=== PATIENT | male | born 1960 | race Caucasian/White ===

== ENCOUNTER 2022-11-29 16:27 | Inpatient (IN) | payer BC, OTHER ==
[2022-11-29 16:33] LABS: Glucose,Whole Blood 338 mg/dL (70-110)
[2022-11-29] MEDS ORDERED: SODIUM CHLORIDE 0.9% 1,000 ML IV STA ×2 (16:42→17:37)
--- NOTE | 2022-11-29 16:42 | ED ---
Weakness HPI - General Chief complaint: Dizziness Stated complaint: dizziness Source: patient, EMS, RN notes reviewed, old records reviewed Mode of arrival: EMS Limitations: no limitations - History of Present Illness Initial comments: This is a 62-year-old male to the emergency department for evaluation of weakness multiple near syncopal event and on arrival to the ER seizure-like activity. Patient per himself has history of high blood pressure but no other medical history takes no medications no new medications no change in medications denies drugs or alcohol complains of severe dizziness lightheadedness and weakness. MD Complaint: generalized weakness, lack of energy, difficulty walking -: hour(s) Location: generalized Severity: severe Severity scale (1-10): 8 Quality: aching Consistency: constant Improves with: none Worsens with: none Context: other (Patient states he was at work when he began to feel significan tly unwell) Associated Symptoms: denies other symptoms, shortness of breath, syncope - Related Data Home Medications Medication Instructions Recorded Confirmed Atorvastatin [Lipitor] 10 mg PO DAILY 11/29/22 11/29/22 Previous Rx's Medication Instructions Recorded Amlodipine Besylate/Valsartan 1 tab PO BID #30 tab 12/01/22 [Amlodipine-Valsartan 5-160 mg] Aspirin 81 mg PO DAILY #30 tab 12/01/22 metFORMIN HCL 500 mg PO BID 30 Days #30 ml 12/01/22 sitaGLIPtin PHOSPHATE [Januvia] 25 mg PO DAILY #30 tab 12/01/22 Allergies Allergy/AdvReac Type Severity Reaction Status Date / Time No Known Allergies Allergy Verified 11/29/22 19:03 Review of Systems ROS Statement: Those systems with pertinent positive or pertinent negative responses have been documented in the HPI. ROS Other: All systems not noted in ROS Statement are negative. Past Medical History Past Medical History: Hypertension Past Surgical History: No Surgical Hx Reported Past Psychological History: No Psychological Hx Reported Smoking Status: Former smoker Past Alcohol Use History: None Reported Past Drug Use History: None Reported - Past Family History Father Family Medical History: No Reported History Mother Family Medical History: No Reported History General Exam Limitations: no limitations General appearance: alert, anxious, in distress Head exam: Present: atraumatic, normocephalic, normal inspection Eye exam: Present: normal appearance, PERRL, EOMI. Absent: scleral icterus, conjunctival injection, periorbital swelling ENT exam: Present: normal exam, mucous membranes moist Neck exam: Present: normal inspection. Absent: tenderness, meningismus, lymphadenopathy Respiratory exam: Present: normal lung sounds bilaterally, decreased breath sounds, prolonged expiratory. Absent: respiratory distress, wheezes, rales, rhonchi, stridor Cardiovascular Exam: Present: tachycardia, normal heart sounds. Absent: systolic murmur, diastolic murmur, rubs, gallop, clicks GI/Abdominal exam: Present: soft, normal bowel sounds. Absent: distended, tenderness, guarding, rebound, rigid Extremities exam: Present: normal inspection, full ROM, normal capillary refill. Absent: tenderness, pedal edema, joint swelling, calf tenderness Back exam: Present: normal inspection Neurological exam: Present: alert, oriented X3, CN II-XII intact Psychiatric exam: Present: normal affect, normal mood Skin exam: Present: warm, dry, intact, normal color. Absent: rash Course Vital Signs 11/29/22 11/29/22 11/29/22 16:29 17:01 18:05 Temperature 97.6 F Pulse Rate 105 H 101 H 97 Respiratory 19 17 18 Rate Blood Pressure 185/89 139/84 156/87 O2 Sat by Pulse 93 L 93 L 96 Oximetry 11/29/22 11/29/22 11/29/22 19:07 19:09 20:18 Temperature 98.6 F Pulse Rate 111 H 101 H Respiratory 17 20 Rate Blood Pressure 161/90 153/86 O2 Sat by Pulse 90 L 96 97 Oximetry 11/29/22 22:16 Temperature 98.6 F Pulse Rate 110 H Respiratory 19 Rate Blood Pressure 133/87 O2 Sat by Pulse 96 Oximetry - Reevaluation(s) Reevaluation #1: 11/29/22 19:41 Medical record is reviewed 11/29/22 21:37 Patient had seizure activity on bedside placement with no history of seizures. Patient became profoundly hypoxic Reevaluation #2: 11/29/22 19:41 Seizure-like activity on arrival 11/29/22 19:41 Low oxygen here in the ER Reevaluation #3: 11/29/22 19:41 Patient informed results and questions answered Patient is remaining tachycardic hypertensive and hypoxic here in the emergency department Patient is not safe for discharge home Reevaluation #4: 11/29/22 19:41 Was pt. sent in by a medical professional or institution (KATHIE Wen, W[employer] B[employer] MACHINE HELPER, urgent care, hospital, or [facility]...) When possible be specific @ -no Did you speak to anyone other than the patient for history (EMS, parent, family, police, friend...)? What history was obtained from this source @ - states when she arrived at patient's work he was sweaty diaphoretic. No medical history she may pass out Did you review nursing and triage notes (agree or disagree)? Why? @ -agree Are old charts reviewed (outside hosp., previous admission, EMS record, old EKG, old radiological studies, urgent care reports/EKG's, [facility] records)? Report findings @ -yes Differential Diagnosis (chest pain, altered mental status, abdominal pain women, abdominal pain men, vaginal bleeding, weakness, fever, dyspnea, syncope, headache, dizziness, GI bleed, back pain, seizure, CVA, palpatations, mental health, musculoskeletal)? @ -prior EKG interpreted by me (3pts min.). @ -yes X-rays interpreted by me (1pt min.). @ -no CT interpreted by me (1pt min.). @ -yes U/S interpreted by me (1pt. min.). @ -no What testing was considered but not performed or refused? (CT, X-rays, U/S, labs)? Why? @ -none What meds were considered but not given or refused? Why? @ -none Did you discuss the management of the patient with other professionals (professionals i.e. KATHIE Wen, W[employer] B[employer] MACHINE HELPER, lab, RT, psych nurse, oncology social worker, geophysical laboratory director, teacher, chief medical officer, case worker)? Give summary @ -no Was smoking cessation discussed for >3mins.? @ -no Was critical care preformed (if so, how long)? @ -no Were there social determinants of health that impacted care today? How? (Homelessness, low income, unemployed, alcoholism, drug addiction, transportation, low edu. Level, literacy, decrease access to med. care, halfway, rehab)? @ -none Was there de-escalation of care discussed even if they declined (Discuss DNR or withdrawal of care, Hospice)? DNR status @ -no What co-morbidities impacted this encounter? (DM, HTN, Smoking, COPD, CAD, Cancer, CVA, ARF, Chemo, Hep., AIDS, mental health diagnosis, sleep apnea, morbid obesity)? @ -none Was patient admitted / discharged? Hospital course, mention meds given and route, prescriptions, significant lab abnormalities, going to OR and other pertinent info. @ - 62 male to the emergency room today for evaluation of syncopal event near syncopal event prior to arrival at work. Patient admits increased stress and increased issues at work and not a lot of self-care. Patient does have seizure here seizure activity on arrival in emergency department here. Patient to become significantly following hypoxic during this event with oxygen in the 60s. Patient does have newly diagnosed here in the emergency department hypertension as well as diabetes which will need further evaluation management Admitted Undiagnosed new problem with uncertain prognosis? @ -no Drug Therapy requiring intensive monitoring for toxicity (Heparin, Nitro, Insulin, Cardizem)? @ -no Were any procedures done? @ -no Diagnosis/symptom? @ -Hypoxia, hypertension, diabetes, seizure, new Acute, or Chronic, or Acute on Chronic? @ -Acute Uncomplicated (without systemic symptoms) or Complicated (systemic symptoms)? @ -Complicated Side effects of treatment? @ -no Exacerbation, Progression, or Severe Exacerbation? @ -exacerbation Poses a threat to life or bodily function? How? (Chest pain, [place], [place], pneumonia, PE, COPD, DKA, ARF, appy, cholecystitis, CVA, Diverticulitis, Homicidal, Suicidal, threat to staff... and all critical care pts) @ -yes severe hypoxia and syncopal event) mortality Reevaluation #5: 11/29/22 19:41 Differential Seizure: Recurrent seizure disorder, febrile seizure, alcohol withdrawal, stimulants, meningitis, encephalitis, intercranial hemorrhage, intracranial tumor, stroke, eclampsia, thyrotoxicosis, hypocalcemia, hyponatremia, hypernatremia, hypom agnesemia, psychogenic, this is not meant to be an all-inclusive list. - Consultations Consultation #1: spoke ya BOYKIN who agrees to admit the patient EKG Findings - EKG Comments: EKG Findings:: EKG sinus tachycardia 103 HI 183 QRS 126 QTc 433 - EKG Results: EKG: interpreted by [facility] Medical Decision Making - Medical Decision Making 62 male to the emergency room today for evaluation of syncopal event near syncopal event prior to arrival at work. Patient admits increased stress and increased issues at work and not a lot of self-care. Patient does have seizure here seizure activity on arrival in emergency department here. Patient to become significantly following hypoxic during this event with oxygen in the 60s. Patient does have newly diagnosed here in the emergency department hypertension as well as diabetes which will need further evaluation management - Lab Data Result diagrams: 11/30/22 03:41 11/30/22 03:41 Lab Results 11/29/22 11/29/22 11/29/22 Range/Units 16:32 16:46 16:46 WBC 10.0 (3.8-10.6) k/uL RBC 4.68 (4.30-5.90) m/uL Hgb 14.2 (13.0-17.5) gm/dL Hct 41.1 (39.0-53.0) % MCV 87.7 (80.0-100.0) fL MCH 30.3 (25.0-35.0) pg MCHC 34.5 (31.0-37.0) g/dL RDW 12.2 (11.5-15.5) % Plt Count 231 (150-450) k/uL MPV 8.0 Neutrophils % 78 % Lymphocytes % 15 % Monocytes % 5 % Eosinophils % 1 % Basophils % 1 % Neutrophils # 7.8 H (1.3-7.7) k/uL Lymphocytes # 1.5 (1.0-4.8) k/uL Monocytes # 0.5 (0-1.0) k/uL Eosinophils # 0.1 (0-0.7) k/uL Basophils # 0.1 (0-0.2) k/uL PT 9.9 (9.0-12.0) sec INR 0.9 (<1.2) APTT 21.0 L (22.0-30.0) sec Sodium (137-145) mmol/L Potassium (3.5-5.1) mmol/L Chloride (98-107) mmol/L Carbon Dioxide (22-30) mmol/L Anion Gap mmol/L BUN (9-20) mg/dL Creatinine (0.66-1.25) mg/dL Est GFR (CKD-EPI)AfAm (>60 ml/min/1.73 sqM) Est GFR (CKD-EPI)NonAf (>60 ml/min/1.73 sqM) Glucose (74-99) mg/dL POC Glucose (mg/dL) 338 H (70-110) mg/dL POC Glu Basketball Scout ID Debbie Casiano Lactic Ac Sepsis Rflx Plasma Lactic Acid Jhon (0.7-2.0) mmol/L Calcium (8.4-10.2) mg/dL Phosphorus (2.5-4.5) mg/dL Magnesium (1.6-2.3) mg/dL Total Bilirubin (0.2-1.3) mg/dL AST (17-59) U/L ALT (4-49) U/L Alkaline Phosphatase (38-126) U/L Troponin I (0.000-0.034) ng/mL Total Protein (6.3-8.2) g/dL Albumin (3.5-5.0) g/dL 11/29/22 11/29/22 11/29/22 Range/Units 16:46 16:46 16:46 WBC (3.8-10.6) k/uL RBC (4.30-5.90) m/uL Hgb (13.0-17.5) gm/dL Hct (39.0-53.0) % MCV (80.0-100.0) fL MCH (25.0-35.0) pg MCHC (31.0-37.0) g/dL RDW (11.5-15.5) % Plt Count (150-450) k/uL MPV Neutrophils % % Lymphocytes % % Monocytes % % Eosinophils % % Basophils % % Neutrophils # (1.3-7.7) k/uL Lymphocytes # (1.0-4.8) k/uL Monocytes # (0-1.0) k/uL Eosinophils # (0-0.7) k/uL Basophils # (0-0.2) k/uL PT (9.0-12.0) sec INR (<1.2) APTT (22.0-30.0) sec Sodium 137 (137-145) mmol/L Potassium 3.3 L (3.5-5.1) mmol/L Chloride 99 (98-107) mmol/L Carbon Dioxide 26 (22-30) mmol/L Anion Gap 12 mmol/L BUN 14 (9-20) mg/dL Creatinine 0.77 (0.66-1.25) mg/dL Est GFR (CKD-EPI)AfAm >90 (>60 ml/min/1.73 sqM) Est GFR (CKD-EPI)NonAf >90 (>60 ml/min/1.73 sqM) Glucose 313 H (74-99) mg/dL POC Glucose (mg/dL) (70-110) mg/dL POC Glu Basketball Scout ID Lactic Ac Sepsis Rflx Plasma Lactic Acid Jhon 4.7 H* (0.7-2.0) mmol/L Calcium 8.8 (8.4-10.2) mg/dL Phosphorus 2.7 (2.5-4.5) mg/dL Magnesium 1.9 (1.6-2.3) mg/dL Total Bilirubin 0.6 (0.2-1.3) mg/dL AST 41 (17-59) U/L ALT 53 H (4-49) U/L Alkaline Phosphatase 130 H (38-126) U/L Troponin I <0.012 (0.000-0.034) ng/mL Total Protein 7.0 (6.3-8.2) g/dL Albumin 4.2 (3.5-5.0) g/dL 11/29/22 11/29/22 11/29/22 Range/Units 17:19 19:48 20:12 WBC (3.8-10.6) k/uL RBC (4.30-5.90) m/uL Hgb (13.0-17.5) gm/dL Hct (39.0-53.0) % MCV (80.0-100.0) fL MCH (25.0-35.0) pg MCHC (31.0-37.0) g/dL RDW (11.5-15.5) % Plt Count (150-450) k/uL MPV Neutrophils % % Lymphocytes % % Monocytes % % Eosinophils % % Basophils % % Neutrophils # (1.3-7.7) k/uL Lymphocytes # (1.0-4.8) k/uL Monocytes # (0-1.0) k/uL Eosinophils # (0-0.7) k/uL Basophils # (0-0.2) k/uL PT (9.0-12.0) sec INR (<1.2) APTT (22.0-30.0) sec Sodium (137-145) mmol/L Potassium (3.5-5.1) mmol/L Chloride (98-107) mmol/L Carbon Dioxide (22-30) mmol/L Anion Gap mmol/L BUN (9-20) mg/dL Creatinine (0.66-1.25) mg/dL Est GFR (CKD-EPI)AfAm (>60 ml/min/1.73 sqM) Est GFR (CKD-EPI)NonAf (>60 ml/min/1.73 sqM) Glucose (74-99) mg/dL POC Glucose (mg/dL) (70-110) mg/dL POC Glu Basketball Scout ID Lactic Ac Sepsis Rflx Y Y Plasma Lactic Acid Jhon 2.8 H* (0.7-2.0) mmol/L Calcium (8.4-10.2) mg/dL Phosphorus (2.5-4.5) mg/dL Magnesium (1.6-2.3) mg/dL Total Bilirubin (0.2-1.3) mg/dL AST (17-59) U/L ALT (4-49) U/L Alkaline Phosphatase (38-126) U/L Troponin I (0.000-0.034) ng/mL Total Protein (6.3-8.2) g/dL Albumin (3.5-5.0) g/dL 11/29/22 Range/Units 21:26 WBC (3.8-10.6) k/uL RBC (4.30-5.90) m/uL Hgb (13.0-17.5) gm/dL Hct (39.0-53.0) % MCV (80.0-100.0) fL MCH (25.0-35.0) pg MCHC (31.0-37.0) g/dL RDW (11.5-15.5) % Plt Count (150-450) k/uL MPV Neutrophils % % Lymphocytes % % Monocytes % % Eosinophils % % Basophils % % Neutrophils # (1.3-7.7) k/uL Lymphocytes # (1.0-4.8) k/uL Monocytes # (0-1.0) k/uL Eosinophils # (0-0.7) k/uL Basophils # (0-0.2) k/uL PT (9.0-12.0) sec INR (<1.2) APTT (22.0-30.0) sec Sodium (137-145) mmol/L Potassium (3.5-5.1) mmol/L Chloride (98-107) mmol/L Carbon Dioxide (22-30) mmol/L Anion Gap mmol/L BUN (9-20) mg/dL Creatinine (0.66-1.25) mg/dL Est GFR (CKD-EPI)AfAm (>60 ml/min/1.73 sqM) Est GFR (CKD-EPI)NonAf (>60 ml/min/1.73 sqM) Glucose (74-99) mg/dL POC Glucose (mg/dL) (70-110) mg/dL POC Glu Basketball Scout ID Lactic Ac Sepsis Rflx Plasma Lactic Acid Jhon 2.4 H* (0.7-2.0) mmol/L Calcium (8.4-10.2) mg/dL Phosphorus (2.5-4.5) mg/dL Magnesium (1.6-2.3) mg/dL Total Bilirubin (0.2-1.3) mg/dL AST (17-59) U/L ALT (4-49) U/L Alkaline Phosphatase (38-126) U/L Troponin I (0.000-0.034) ng/mL Total Protein (6.3-8.2) g/dL Albumin (3.5-5.0) g/dL - EKG Data -: EKG Interpreted by Me - Radiology Data Radiology results: report reviewed (CT brain negative for acute disease CT angiogram chest no PE), image reviewed Critical Care Time Critical Care Time: Yes Total Critical Care Time: 31 Disposition Clinical Impression: Seizure, New onset seizure, Hypoxia, Hypertension, Diabetes mellitus, new onset, Tachycardia Disposition: ADMITTED IP TO THIS HOSP Condition: Fair Is patient prescribed a controlled substance at d/c from ED?: No Time of Disposition: 21:30
[2022-11-29 17:05] LABS: Basophils # (A) 0.1 k/uL (0-0.2); Basophils % (A) 1 %; Eosinophils # (A) 0.1 k/uL (0-0.7); Eosinophils % (A) 1 %; HCT 41.1 % (39.0-53.0); HGB 14.2 gm/dL (13.0-17.5); Lymphocytes # (A) 1.5 k/uL (1.0-4.8); Lymphocytes % (A) 15 %; MCH 30.3 pg (25.0-35.0); MCHC 34.5 g/dL (31.0-37.0); MCV 87.7 fL (80.0-100.0); Monocytes # (A) 0.5 k/uL (0-1.0); Monocytes % (A) 5 %; Neutrophils # (A) 7.8 k/uL (1.3-7.7); Neutrophils % (A) 78 %; Platelet Count 231 k/uL (150-450); RBC 4.68 m/uL (4.30-5.90); RDW 12.2 % (11.5-15.5)
[2022-11-29 17:21] LABS: ALT 53 U/L (4-49); AST 41 U/L (17-59); African American GFR (CKD) >90 (>60 ml/min/1.73 sqM); Albumin 4.2 g/dL (3.5-5.0); Alkaline Phosphatase 130 U/L (38-126); Anion Gap 12 mmol/L; Blood Urea Nitrogen 14 mg/dL (9-20); Calcium 8.8 mg/dL (8.4-10.2); Carbon Dioxide 26 mmol/L (22-30); Chloride 99 mmol/L (98-107); Glucose 313 mg/dL (74-99); Magnesium 1.9 mg/dL (1.6-2.3); Non-African American GFR(CKD) >90 (>60 ml/min/1.73 sqM); Phosphorus 2.7 mg/dL (2.5-4.5); Potassium 3.3 mmol/L (3.5-5.1); Sodium 137 mmol/L (137-145); Total Bilirubin 0.6 mg/dL (0.2-1.3)
[2022-11-29 17:23] LABS: INR 0.9 (<1.2); Prothrombin Time 9.9 sec (9.0-12.0)
[2022-11-29] MEDS ORDERED: SODIUM CHLORIDE 0.9% 1,000 ML IV ONE (17:37)
--- NOTE | 2022-11-29 17:50 | CT ---
EXAMINATION TYPE: CT brain wo con DATE OF EXAM: 11/29/2022 HISTORY: dizziness, possible seizure CT DLP: 1182.4. scanned by MILO [email or web address]. Automated Exposure Control for Dose Reduction was Utilized. TECHNIQUE: CT scan of the head is performed without contrast. COMPARISON: None. FINDINGS: There is no acute intracranial hemorrhage or midline shift identified. There is no mass or mass effect or definite new attenuation defect. The globes are intact and the paranasal sinuses, mast oid sinus air cells, and middle ear cavities are clear. IMPRESSION: No acute CT process.
--- NOTE | 2022-11-29 21:09 | CT ---
EXAMINATION TYPE: CT angio chest DATE OF EXAM: 11/29/2022 COMPARISON: NONE HISTORY: Dizziness CT DLP: 2936.7 mGycm. Automated Exposure Control for Dose Reduction was Utilized. CONTRAST: CTA scan of the thorax is performed with IV Contrast, patient injected with 100 ml mL of Is ovue 370. MIP Images are created on CT scanner and reviewed. 3D reconstructed images are created on an independent workstation and reviewed. FINDINGS: LUNGS: The lungs are grossly clear, there is no concerning parenchymal mass or nodule identified. T here is no pleural effusion or pneumothorax seen. The tracheobronchial tree is patent. MEDIASTINUM: There is satisfactory enhancement of the pulmonary artery and its branches; there is no CT evidence for pulmonary embolism. The aorta is mildly ectatic, but there is no acute aortic process . There is borderline cardiomegaly with prominent left and right coronary calcifications are noted. T here are no greater than 1 cm hilar or mediastinal lymph nodes. No pericardial effusion is seen. OTHER: No acute skeletal process. IMPRESSION: 1. Negative for pulmonary embolism. 2. Prominent left and right coronary calcifications.
--- NOTE | 2022-11-29 21:18 | CT ---
EXAMINATION TYPE: CT abdomen pelvis w con DATE OF EXAM: 11/29/2022 COMPARISON: None HISTORY: Dizziness. CT DLP: 2936.7 mGycm, Automated Exposure Control for Dose Reduction was Utilized. CONTRAST: CT scan of the abdomen and pelvis is performed with oral and with IV Contrast, patient inje cted with 100 ml mL of Isovue 370. FINDINGS: Visualized lower chest: No acute process. LIVER/GB: No significant abnormality is appreciated. PANCREAS: No significant abnormality is seen. SPLEEN: No significant abnormality is seen. ADRENALS: No significant abnormality is seen. KIDNEYS: No acute process. BOWEL: No significant abnormality is seen. LYMPH NODES: There is a 26 x 16 mm enlarged lymph node located just medial to the gastric body, relat ed to the left gastric artery. This lymph node is homogeneous and is ovoid. There are no other candid ates for adenopathy in the abdomen or pelvis. PELVIC VISCERA: No gross abnormality seen. OSSEOUS STRUCTURES: No significant abnormality is seen. OTHER: No significant additional abnormality is seen. IMPRESSION: 1. No significant acute finding is seen to account for patient's clinical symptoms. 2. Incidental epigastric 26 x 16 mm lymph node noted.
[2022-11-29] MEDS ORDERED: MORPHINE SULFATE 4 MG/ML SYRINGE IV PRN (21:33)
[2022-11-29] MEDS ORDERED: NALOXONE 0.4 MG/ML 1 ML VIAL IV PRN (21:33)
[2022-11-29] MEDS ORDERED: ONDANSETRON 4 MG/2 ML VIAL IVP PRN (21:33)
[2022-11-29] MEDS: SODIUM CHLORIDE 0.9% 1,000 ML IV SCH (22:17)
[2022-11-30 04:16] LABS: ALT 50 U/L (4-49); AST 36 U/L (17-59); African American GFR (CKD) >90 (>60 ml/min/1.73 sqM); Albumin 3.8 g/dL (3.5-5.0); Alkaline Phosphatase 95 U/L (38-126); Anion Gap 8 mmol/L; Blood Urea Nitrogen 12 mg/dL (9-20); Calcium 8.3 mg/dL (8.4-10.2); Carbon Dioxide 27 mmol/L (22-30); Chloride 103 mmol/L (98-107); Glucose 200 mg/dL (74-99); Non-African American GFR(CKD) >90 (>60 ml/min/1.73 sqM); Phosphorus 3.3 mg/dL (2.5-4.5); Potassium 3.9 mmol/L (3.5-5.1); Sodium 138 mmol/L (137-145); Total Bilirubin 0.6 mg/dL (0.2-1.3); Total Protein 6.5 g/dL (6.3-8.2)
[2022-11-30 04:22] LABS: Basophils % (A) 0 %; Eosinophils # (A) 0.1 k/uL (0-0.7); Eosinophils % (A) 1 %; HCT 40.3 % (39.0-53.0); HGB 13.6 gm/dL (13.0-17.5); Lymphocytes # (A) 1.3 k/uL (1.0-4.8); Lymphocytes % (A) 16 %; MCH 30.1 pg (25.0-35.0); MCHC 33.7 g/dL (31.0-37.0); MCV 89.4 fL (80.0-100.0); Mean Platelet Volume 8.2; Monocytes # (A) 0.5 k/uL (0-1.0); Monocytes % (A) 6 %; Neutrophils % (A) 75 %; Platelet Count 208 k/uL (150-450); RDW 12.5 % (11.5-15.5)
[2022-11-30] MEDS: SODIUM CHLORIDE 0.9% 1,000 ML IV SCH ×3 (06:19→16:19)
[2022-11-30] MEDS: ATORVASTATIN 10 MG TAB PO SCH (07:38)
--- NOTE | 2022-11-30 10:08 | CA ---
Transthoracic Echo Report Name: Dilip Bartlett Age: 62 Gender: M : 1960 Exam Date: 11/30/2022 08:13 Exam Location: [facility] Ht (in): 69 Wt (lb): 250 Ordering Physician: Anand Montes DO Attending/Referring Phys: [id number], Jyoti Rater Associate Walter Candelario Procedure CPT: Indications: Syncope Cardiac Hx: Technical Quality: Fair Contrast 1: Total Dose (mL): Contrast 2: Total Dose (mL): MEASUREMENTS (Male / Female) Normal Values 2D ECHO LV Diastolic Diameter PLAX 4.6 cm 4.2 - 5.9 / 3.9 - 5.3 cm LV Systolic Diameter PLAX 2.9 cm IVS Diastolic Thickness 2.0 cm 0.6 - 1.0 / 0.6 - 0.9 cm LVPW Diastolic Thickness 1.4 cm 0.6 - 1.0 / 0.6 - 0.9 cm LV Relative Wall Thickness 0.7 RV Internal Dim ED PLAX 3.9 cm LVOT Diameter 2.4 cm Aortic Root Diameter 3.0 cm LA Systolic Diameter LX 3.4 cm 3.0 - 4.0 / 2.7 - 3.8 cm LV Diastolic Volume MOD BP 83.9 cm??? 67 - 155 / 56 - 104 cm??? LV Systolic Volume MOD BP 44.3 cm??? - / 19 - 49 cm??? LV Ejection Fraction MOD BP 47.2 % >= 55 % LV Cardiac Index MOD BP 1602.5 cm???/min???m??? LV Diastolic Volume MOD 4C 82.2 cm??? LV Systolic Volume MOD 4C 39.1 cm??? LV Ejection Fraction MOD 4C 52.4 % LV Cardiac Index MOD 4C 1744.5 cm???/min???m??? LV Diastolic Length 4C 7.6 cm LV Systolic Length 4C 6.6 cm LV Diastolic Volume MOD 2C 85.3 cm??? LV Systolic Volume MOD 2C 46.6 cm??? LV Ejection Fraction MOD 2C 45.4 % LV Cardiac Index MOD 2C 1567.0 cm???/min???m??? LV Diastolic Length 2C 7.6 cm LV Systolic Length 2C 7.2 cm LA Volume 60.7 cm??? 18 - 58 / 22 - 52 cm??? Ascending Aorta Diameter 3.9 cm DOPPLER AV Peak Velocity 195.9 cm/s AV Peak Gradient 15.3 mmHg LVOT Peak Velocity 125.6 cm/s LVOT Peak Gradient 6.3 mmHg AV Area Cont Eq pk 2.8 cm??? MV Peak Velocity 126.5 cm/s MV Peak Gradient 6.4 mmHg MV Mean Velocity 65.1 cm/s MV Mean Gradient 2.2 mmHg MV Velocity Time Integral 32.9 cm MR Peak Velocity 239.9 cm/s MR Peak Gradient 23.0 mmHg Mitral E Point Velocity 115.8 cm/s Mitral A Point Velocity 100.8 cm/s Mitral E to A Ratio 1.1 MV Deceleration Time 184.6 ms MV E' Velocity 8.6 cm/s Mitral E to MV E' Ratio 13.4 TR Peak Velocity 277.7 cm/s TR Peak Gradient 30.8 mmHg Right Ventricular Systolic Press 35.9 mmHg PV Peak Velocity 162.2 cm/s PV Peak Gradient 10.5 mmHg FINDINGS Left Ventricle Mildly increased septal wall thickness. Normal LV size. Left ventricular ejection fraction is estimated at 55-60 %. Right Ventricle Normal right ventricular size. RVSP= 38mmhg. Right Atrium Normal right atrial size. Left Atrium Mildly increased left atrial volume. LA volume index= 27ml/m2 Mitral Valve Structurally normal mitral valve. Trace MR. Aortic Valve Trileaflet aortic valve. No aortic stenosis. No aortic regurgitation. Tricuspid Valve Structurally normal tricuspid valve. Mild TR. Pulmonic Valve Pulmonic valve not well visualized. No pulmonic regurgitation. Pericardium Normal pericardium. Aorta Ascending AO hermann= 3.9cm CONCLUSIONS Normal LV size and systolic function. Mild mitral and tricuspid regurgitation no pericardial effusion no pulmonary hypertension of significance Previewed by: Dr. Vincent Valera MD (Electronically Signed) Final Date: 30 November 2022 10:07
--- NOTE | 2022-11-30 12:32 | P.CNNES ---
History of Present Illness Consult date: 11/30/22 Requesting physician: Anand Montes Reason for Consult: New onset seizure History of Present Illness: Patient is a 62-year-old male with history of hypertension, mildly elevated blood sugars, came to the hospital by ambulance yesterday at 4:27 PM for syncopal spells. 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 After he was done with a meeting at 2:15 PM, while he was sitting, he started feeling warm, sweaty, not feeling well. He walked to the office, and started getting dizzy. He felt nausea but no vomiting. They called the ambulance and patient was brought to the hospital. Patient did not loose consciousness, no tongue bite, no loss of control of urine, or any convulsive activity. Patient states that his symptoms lasted for almost couple hours before it went away. He denied any strokelike symptoms like slurred speech, facial droop, focal numbness tingling or weakness or incoordination. As per EMS flow sheet, when they arrived, patient was alert and oriented 4, appeared diaphoretic and stated he has been dizzy since this morning. Patient stated that he has history of hypertension and has been compliant with his medication daily. Patient stated that he has not followed up with his PCP in about a year and has been under a lot of stress lately. Also has been feeling nausea. Patient denied any chest or difficulty breathing. Patient did vomit 1. EKG showed normal sinus rhythm. Patient was given 4 mg of Zofran IV for nausea. Also given nitro sublingual. Patient stated the dizziness subsided slightly during the transport. Patient's vitals at the scene was blood pressure 198/109, pulse rate 94, respiration 18, saturation 97%. Blood sugar 3 and 16 and temperature 97.8. Blood test shows normal CBC, PT/PTT, normal Chem-7 with potassium 3.3, lactate was 4.7. Blood glucose 338, AST normal but ALT mildly elevated 53. Troponin negative. TSH normal. CT head revealed no acute process. CTA of the chest showed negative for pulmonary embolism, prominent left and right coronary calcification. CT abdomen and pelvis showed no acute findings. Incidental epigastric 26 x 16 mm lymph node noted. 2-D echo revealed normal left frontal grid size and systolic function. Mild mitral and tricuspid regurgitation. No pericardial effusion or primary hypertension. EF is 55-60%. Mildly increased left atrial volume. Home medications include Lipitor 10 mg and amlodipine/valsartan. Patient does not take any antiplatelet medication. Patient has history of hypertension for 10 years, which is not really well controlled. He also has slightly creeping up blood glucose levels for last several years. On the last visit with his primary physician, he was told to reduce weight and adjust his diet otherwise he will have to be on medication for possible diabetes. He denies any tobacco or alcohol use. Review of Systems Constitutional: Reports weight gain, Denies chills, Denies fever Eyes: denies blurred vision (Not as good as before), denies diplopia, denies pa in Ears: bilateral: decreased hearing, deny: ear discharge, earache, tinnitus Ears, nose, mouth and throat: Denies headache, Denies sore throat Cardiovascular: Denies chest pain, Denies shortness of breath Respiratory: Reports cough, Denies excessive sputum Gastrointestinal: Reports nausea (with near syncope), Denies abdominal pain, Denies diarrhea, Denies vomiting Musculoskeletal: Reports low back pain, Denies myalgias, Denies neck pain Integumentary: Denies pruritus, Denies rash Neurological: Reports as per HPI Psychiatric: Denies anxiety, Denies depression Endocrine: Reports weight change, Denies fatigue Hematologic/Lymphatic: Denies easy bleeding, Denies easy bruising Past Medical History Past Medical History: Hypertension History of Any Multi-Drug Resistant Organisms: None Reported Past Surgical History: No Surgical Hx Reported Past Anesthesia/Blood Transfusion Reactions: No Reported Reaction Past Psychological History: No Psychological Hx Reported Smoking Status: Never smoker Past Alcohol Use History: None Reported Past Drug Use History: None Reported - Past Family History Father Family Medical History: No Reported History Mother Family Medical History: No Reported History Medications and Allergies Home Medications Medication Instructions Recorded Confirmed Type Amlodipine Besylate/Valsartan 1 tab PO DAILY 11/29/22 11/29/22 History [Amlodipine-Valsartan 5-160 mg] Atorvastatin [Lipitor] 10 mg PO DAILY 11/29/22 11/29/22 History Allergies Allergy/AdvReac Type Severity Reaction Status Date / Time No Known Allergies Allergy Verified 11/29/22 19:03 Physical Examination - Vital Signs Vital Signs: Vital Signs Temp Pulse Pulse Resp BP BP Pulse Ox 11/30/22 09:58 94 L 11/30/22 07:40 98.1 F 91 16 177/85 96 11/30/22 03:35 98.3 F 102 H 20 144/88 95 11/30/22 02:00 102 H 11/29/22 23:05 98.1 F 106 H 20 161/93 95 11/29/22 22:16 98.6 F 110 H 19 133/87 96 11/29/22 20:18 101 H 20 153/86 97 11/29/22 19:09 96 11/29/22 19:07 98.6 F 111 H 17 161/90 90 L 11/29/22 18:05 97 18 156/87 96 11/29/22 17:01 101 H 17 139/84 93 L 11/29/22 16:29 97.6 F 105 H 19 185/89 93 L Intake and Output 11/29/22 11/30/22 11/30/22 22:59 06:59 14:59 Intake Total 500 490 Output Total 580 Balance -80 490 Intake: IV 10 Invasive Line 1 10 Oral 500 480 Output: Urine 580 Other: Voiding Method Toilet Weight 113.398 kg 113.398 kg Patient is a late middle aged male, very pleasant in no acute distress. Patient is alert awake oriented to time place and person. Speech and language functions are normal. Patient can name and repeat very well. No aphasia or dysarthria. Attention, concentration and fund of knowledge is adequate. On cranial nerve examination, pupils are equal, round and reacting to light, visual baron are full on confrontation, with no neglect on double simultaneous stimulation. Extraocular muscles are intact with no nystagmus. Face is symmetric, tongue protrudes to the midline. Palatal elevation and sensation normal, hearing and shoulder shrug normal, facial sensation normal. On muscle strength testing, there is no pronator drift and the strength is normal in arms and legs distally and proximally. Deep tendon reflexes are symmetric somewhat hypoactive and plantars are downgoing bilaterally. Sensory to touch is equal with no neglect on double simultaneous stimulation. Cerebellar function showed no ataxia for [id number] testing. No dysdiadochokinesia. No ataxia for [id number] testing on either side. Tone and bulk of muscles normal. Gait deferred.. On general examination, there is no carotid bruit or murmur, S1-S2 audible. Chest is clear on consultation. Abdomen is soft nontender. No organomegaly, bowel sounds present. Peripheral pulses are present. No edema. Results - Laboratory Findings CBC and BMP: 11/30/22 03:41 11/30/22 03:41 Abnormal Lab Findings: Abnormal Labs 11/29/22 11/29/22 11/29/22 16:32 16:46 16:46 Neutrophils # 7.8 H APTT 21.0 L Potassium Glucose POC Glucose (mg/dL) 338 H Plasma Lactic Acid Jhon Calcium ALT Alkaline Phosphatase 11/29/22 11/29/22 11/29/22 16:46 16:46 19:48 Neutrophils # APTT Potassium 3.3 L Glucose 313 H POC Glucose (mg/dL) Plasma Lactic Acid Jhon 4.7 H* 2.8 H* Calcium ALT 53 H Alkaline Phosphatase 130 H 11/29/22 11/30/22 21:26 03:41 Neutrophils # APTT Potassium Glucose 200 H POC Glucose (mg/dL) Plasma Lactic Acid Jhon 2.4 H* Calcium 8.3 L ALT 50 H Alkaline Phosphatase Assessment and Plan Assessment: * Near syncope, likely due to uncontrolled blood pressure, hyperglycemia. Rule out hypertensive encephalopathy. Semiology of the event does not point towards seizure. Patient did not have any focal symptoms, but cerebellar TIA also in the differential. * Hypertension, not well controlled * Elevated blood sugars, rule out diabetes. * Elevated lactate, unclear cause. * Obesity Plan: * Patient had an EEG performed, we will review the results. * Check carotid Doppler to rule out stenosis. * Cardiology has seen the patient, recommended event monitoring. * Optimize control of hypertension to normotensive level. * Await hemoglobin A1c and lipid panel. If diabetes confirmed, then recommend appropriate treatment. Continue Lipitor. * Patient complaining of some blurred vision. Patient recommended to follow up with hydrometer finisher to rule out hypertensive retinopathy. * Patient has multiple vascular risk factors, suggest starting aspirin 81 mg daily. * No other neurological workup indicated. Thank you for the consult. Addendum: Carotid Doppler revealed no evidence for hemodynamically significant stenosis. Nonvisualization of the vertebral arteries. This is probably technical. EEG was normal awake and drowsy. No focal, lateralized or epileptiform activity was seen. Lipid panel with cholesterol 144, LDL 83, HDL 29 and triglycerides 155. Continue Lipitor 10 mg daily. Hemoglobin A1c 10.4 consistent with poorly controlled diabetes. Recommend optimize control of diabetes to target A1c < 7.0. Neurology will sign off. Please reconsult neurology if any concerns.
--- NOTE | 2022-11-30 13:02 | US ---
EXAMINATION TYPE: US carotid duplex BILAT DATE OF EXAM: 11/30/2022 COMPARISON: NONE CLINICAL INDICATION: Male, 62 years old with history of Near syncope, dizziness; Dizziness TECHNIQUE: Carotid duplex ultrasound examination. Indirect Doppler criteria was utilized. FINDINGS: EXAM MEASUREMENTS: RIGHT: Peak Systolic Velocity (PSV) cm/sec ----- Right CCA: 95.2 ----- Right ICA: 108 ----- Right ECA: 157 ICA/CCA ratio: 1.1 RIGHT: End Diastole cm/sec ----- Right CCA: 21.2 ----- Right ICA: 29.3 ----- Right ECA: 26.2 LEFT: Peak Systolic Velocity (PSV) cm/sec ----- Left CCA: 89.4 ----- Left ICA: 125 ----- Left ECA: 122 ICA/CCA ratio: 1.4 LEFT: End Diastole cm/sec ----- Left CCA: 19.7 ----- Left ICA: 30.0 ----- Left ECA: 13.2 VERTEBRALS (direction of flow): Right Vertebral: Unable to visualize Left Vertebral: Unable to visualize Rhythm: Normal E COMMERCE STRATEGIST NOTES: No significant stenosis seen IMPRESSION: No evidence for hemodynamically significant stenosis. Nonvisualization of the vertebral arteries. Criteria for Assigning % of Stenosis / Diameter reduction (Estimation based on the indirect measurements of the internal carotid artery velocities (ICA PSV). 1. Normal (no stenosis)=ICA PSV < 125 cm/s: ratio < 2.0: ICA EDV<40 cm/s. 2. Less than 50% stenosis=ICA PSV < 125 cm/s: ratio < 2.0: ICA EDV<40 cm/s. 3. 50 to 69% stenosis=ICA PSV of 125 to 230 cm/s: ration 2.0 ? 4.0: ICA EDV 40-100 cm/s. 4. Greater than 70% stenosis to near occlusion= ICA PSV > 230 cm/s: ratio > 4.0: ICA EDV > 100 cm/s. 5. Near occlusion= ICA PSV velocities may be low or undetectable: variable ratio and ICA EDV. 6. Total occlusion=unable to detect flow.
--- NOTE | 2022-11-30 13:04 | P.CRDCN ---
History of Present Illness History of present illness: HISTORY OF PRESENT ILLNESS: This is a 62-year-old male with a past medical history significant for hypertension and hyperlipidemia. Patient does not follow with a septic cleaner. We have been asked to see the patient in consultation for syncope. Patient examined at the bedside. patient states yesterday he was on a conference call with a customer and that lasted for proximal A1 hour. He states at the end of the call he started to feel unwell. He reports feeling diaphoretic and dizzy. He states that everything in the room started to spin. He called EMS and was found to have extremely elevated blood pressures with readings of 200s/100s. Patient did not lose consciousness. He denied any chest pain or pressure. He denied shortness of breath. The patient is a nonsmoker. He denies alcohol use. He states yesterday he had lunch earlier in the day and had a sandwich and 10 cookies. He also reports eating a high sodium diet. * EKG reveals sinus tachycardia. No signs of acute ischemia. * Laboratory data: WBC 8.0. Hemoglobin 13.6. Platelet count 208. sodium 138. Potassium 3.9. BUN 12. Creatinine 0.75. Troponin negative times * Current home cardiac medications include Lipitor 10 mg daily and amlodipine- valsartan 5-160mg daily * Echocardiogram completed revealed ejection fraction 55-60%, trace MR, mild TR REVIEW OF SYSTEMS: At the time of my exam: CONSTITUTIONAL: Denies fever or chills. HEENT: Denies blurred vision, vision changes, or eye pain. Denies hemoptysis CARDIOVASCULAR: Denies chest pain. Denies orthopnea. Denies PND. Denies palpitations RESPIRATORY: Denies shortness of breath. GASTROINTESTINAL: Denies abdominal pain. Denies nausea or vomiting. HEMATOLOGIC: Denies bleeding disorders. GENITOURINARY: Denies any blood in urine. SKIN: Denies pruitis. Denies rash. PHYSICAL EXAM: VITAL SIGNS: Reviewed. GENERAL: Well-developed in no acute distress. HEENT: Head is normocephalic. Pupils are equal, round. Sclerae anicteric. Mucous membranes of the mouth are moist. Neck supple. No JVD or thyromegaly LUNGS: Respirations even and unlabored. Lungs essentially clear to auscultation bilaterally. HEART: Regular rate and rhythm. S1 and S2 heard. ABDOMEN: Soft. Nondistended. Nontender. EXTREMITIES: Normal range of motion. No clubbing or cyanosis. Peripheral pulses intact. No lower extremity edema NEUROLOGIC: Awake and alert. Oriented x 3. ASSESSMENT: Pre-syncope secondary to uncontrolled hypertension Hypertension, uncontrolled Hyperlipidemia Hyperglycemia, rule out diabetes Morbid obesity: BMI 36.9 PLAN: 2D echo obtained and reviewed Increase amlodipine-valsartan 5-160mg to BID dosing instead of daily dosing Continue to monitor blood pressure Check lipid panel and hemoglobin A1C Patient instructed to decrease salt intake and counseled on weight reduction Further recommendations pending patient course Nurse practitioner note has been reviewed by physician. Signing provider agrees with the documented findings, assessment, and plan of care. Past Medical History Past Medical History: Hypertension History of Any Multi-Drug Resistant Organisms: None Reported Past Surgical History: No Surgical Hx Reported Past Anesthesia/Blood Transfusion Reactions: No Reported Reaction Past Psychological History: No Psychological Hx Reported Smoking Status: Never smoker Past Alcohol Use History: None Reported Past Drug Use History: None Reported - Past Family History Father Family Medical History: No Reported History Mother Family Medical History: No Reported History Medications and Allergies Home Medications Medication Instructions Recorded Confirmed Type Amlodipine Besylate/Valsartan 1 tab PO DAILY 11/29/22 11/29/22 History [Amlodipine-Valsartan 5-160 mg] Atorvastatin [Lipitor] 10 mg PO DAILY 11/29/22 11/29/22 History Allergies Allergy/AdvReac Type Severity Reaction Status Date / Time No Known Allergies Allergy Verified 11/29/22 19:03 Physical Exam Vitals: Vital Signs Temp Pulse Pulse Resp BP BP Pulse Ox 11/30/22 09:58 94 L 11/30/22 07:40 98.1 F 91 16 177/85 96 11/30/22 03:35 98.3 F 102 H 20 144/88 95 11/30/22 02:00 102 H 11/29/22 23:05 98.1 F 106 H 20 161/93 95 11/29/22 22:16 98.6 F 110 H 19 133/87 96 11/29/22 20:18 101 H 20 153/86 97 11/29/22 19:09 96 11/29/22 19:07 98.6 F 111 H 17 161/90 90 L 11/29/22 18:05 97 18 156/87 96 11/29/22 17:01 101 H 17 139/84 93 L 11/29/22 16:29 97.6 F 105 H 19 185/89 93 L Intake and Output 11/29/22 11/30/22 11/30/22 22:59 06:59 14:59 Intake Total 500 490 Output Total 580 Balance -80 490 Intake: IV 10 Invasive Line 1 10 Oral 500 480 Output: Urine 580 Other: Voiding Method Toilet Weight 113.398 kg 113.398 kg Results 11/30/22 03:41 11/30/22 03:41 Cardiac Enzymes 11/29/22 11/29/22 11/29/22 Range/Units 16:46 16:46 23:45 AST 41 (17-59) U/L Troponin I <0.012 <0.012 (0.000-0.034) ng/mL 11/30/22 11/30/22 Range/Units 03:41 03:41 AST 36 (17-59) U/L Troponin I <0.012 (0.000-0.034) ng/mL Coagulation 11/29/22 Range/Units 16:46 PT 9.9 (9.0-12.0) sec APTT 21.0 L (22.0-30.0) sec CBC 11/29/22 11/30/22 Range/Units 16:46 03:41 WBC 10.0 8.0 (3.8-10.6) k/uL RBC 4.68 4.50 (4.30-5.90) m/uL Hgb 14.2 13.6 (13.0-17.5) gm/dL Hct 41.1 40.3 (39.0-53.0) % Plt Count 231 208 (150-450) k/uL Comprehensive Metabolic Panel 11/29/22 11/30/22 Range/Units 16:46 03:41 Sodium 137 138 (137-145) mmol/L Potassium 3.3 L 3.9 (3.5-5.1) mmol/L Chloride 99 103 (98-107) mmol/L Carbon Dioxide 26 27 (22-30) mmol/L BUN 14 12 (9-20) mg/dL Creatinine 0.77 0.75 (0.66-1.25) mg/dL Glucose 313 H 200 H (74-99) mg/dL Calcium 8.8 8.3 L (8.4-10.2) mg/dL AST 41 36 (17-59) U/L ALT 53 H 50 H (4-49) U/L Alkaline Phosphatase 130 H 95 (38-126) U/L Total Protein 7.0 6.5 (6.3-8.2) g/dL Albumin 4.2 3.8 (3.5-5.0) g/dL Current Medications Generic Name Dose Route Start Last Admin Trade Name Freq PRN Reason Stop Dose Admin Atorvastatin Calcium 10 mg 11/30/22 09:00 11/30/22 07:38 Atorvastatin 10 Mg Tab PO 10 mg DAILY JADA Administration Sodium Chloride 1,000 mls @ 130 mls/hr 11/29/22 21:45 11/30/22 06:19 Saline 0.9% IV 130 mls/hr .[id number] JADA Administration Morphine Sulfate 4 mg 11/29/22 21:33 Morphine Sulfate 4 Mg/Ml Syringe IV Q4HR PRN Severe Pain (Scale 7 to 10) Naloxone HCl 0.2 mg 11/29/22 21:33 Naloxone 0.4 Mg/Ml 1 Ml Vial IV Q2M PRN Opioid Reversal Ondansetron HCl 4 mg 11/29/22 21:33 Ondansetron 4 Mg/2 Ml Vial IVP Q8HR PRN Nausea And Vomiting Intake and Output 11/29/22 11/30/22 11/30/22 22:59 06:59 14:59 Intake Total 500 490 Output Total 580 Balance -80 490 Intake: IV 10 Invasive Line 1 10 Oral 500 480 Output: Urine 580 Other: Voiding Method Toilet Weight 113.398 kg 113.398 kg 11/30/22 03:41 11/30/22 03:41
--- NOTE | 2022-11-30 15:23 | P.HPIM ---
History of Present Illness H&P Date: 11/30/22 History of present illness; patient is 62-year-old gentleman with past medical h istory significant for hypertension, lipidemia who presented to the ER because of generalized weakness with near passing out events. Patient stated that he was working in his office on a conference call when he started getting diaphoretic and dizzy. Patient became lightheaded, denied any palpitation. Denied any chest pain . Denied any orthopnea or PND. There was no episode of passing out. Patient denied any jerky movements of arms or legs. No compared of bowel or urinary incontinence. Initial lab work done in the ER showed lymphocytic 10, hemoglobin 14.2, platelet count 231, sodium 137, potassium 3.3, BUN 14, creatinine 0.77, glucose 313, lactate 4.7 EKG done in the ER showed heart rate 103, P waves seen, no ST elevation or T- wave inversion in any leads CT brain done showed no acute cranial process CTA chest done negative for PE, CT abdominal done negative for any acute findings Chest x-ray negative for acute cardiac process REVIEW OF SYSTEMS: CONSTITUTIONAL: As mentioned in HPI HEENT: No recent visual problems or hearing problems. Denied any sore throat. CARDIOVASCULAR: As mentioned in HPI PULMONARY: No shortness of breath, no cough, no hemoptysis. GASTROINTESTINAL: No diarrhea, no nausea, no vomiting, no abdominal pain. NEUROLOGICAL: No headaches, no weakness, no numbness. HEMATOLOGICAL: Denies any bleeding or petechiae. GENITOURINARY: Denies any burning micturition, frequency, or urgency. MUSCULOSKELETAL/RHEUMATOLOGICAL: Denies any joint pain, swelling, or any muscle pain. ENDOCRINE: Denies any polyuria or polydipsia. The rest of the 14-point review of systems is negative. PHYSICAL EXAMINATION: GENERAL: The patient is alert and oriented x3, not in any acute distress. Well developed, well nourished. HEENT: Pupils are round and equally reacting to light. EOMI. No scleral icterus. No conjunctival pallor. Normocephalic, atraumatic. No pharyngeal erythema. No thyromegaly. CARDIOVASCULAR: S1 and S2 present. No murmurs, rubs, or gallops. PULMONARY: Chest is clear to auscultation, no wheezing or crackles. ABDOMEN: Soft, nontender, nondistended, normoactive bowel sounds. No palpable organomegaly. MUSCULOSKELETAL: No joint swelling or deformity. EXTREMITIES: No cyanosis, clubbing, or pedal edema. NEUROLOGICAL: Gross neurological examination did not reveal any focal deficits. SKIN: No rashes. Assessment and plan Near syncope Hypertensive urgency Hypokalemia Lactic acidosis Monitor vital signs Monitor CBC Monitor CMP Continue telemetry monitoring Ordered 2-D echo Ordered EEG Cardiology consulted Neurology consulted Labs and medication were reviewed.. Continue same treatment. Continue with symptomatic treatment. Resume home medication. Monitor labs and vitals. DVT and GI prophylaxis. Further recommendations as per clinical course of the patient Dictation was produced using [employer] dictation software. please excuse any grammatical, word or spelling errors. Past Medical History Past Medical History: Hypertension History of Any Multi-Drug Resistant Organisms: None Reported Past Surgical History: No Surgical Hx Reported Past Anesthesia/Blood Transfusion Reactions: No Reported Reaction Past Psychological History: No Psychological Hx Reported Smoking Status: Never smoker Past Alcohol Use History: None Reported Past Drug Use History: None Reported - Past Family History Father Family Medical History: No Reported History Mother Family Medical History: No Reported History Medications and Allergies Home Medications Medication Instructions Recorded Confirmed Type Amlodipine Besylate/Valsartan 1 tab PO DAILY 11/29/22 11/29/22 History [Amlodipine-Valsartan 5-160 mg] Atorvastatin [Lipitor] 10 mg PO DAILY 11/29/22 11/29/22 History Allergies Allergy/AdvReac Type Severity Reaction Status Date / Time No Known Allergies Allergy Verified 11/29/22 19:03 Physical Exam Vitals: Vital Signs Temp Pulse Pulse Resp BP BP Pulse Ox 11/30/22 07:40 98.1 F 91 16 177/85 96 11/30/22 03:35 98.3 F 102 H 20 144/88 95 11/30/22 02:00 102 H 11/29/22 23:05 98.1 F 106 H 20 161/93 95 11/29/22 22:16 98.6 F 110 H 19 133/87 96 11/29/22 20:18 101 H 20 153/86 97 11/29/22 19:09 96 11/29/22 19:07 98.6 F 111 H 17 161/90 90 L 11/29/22 18:05 97 18 156/87 96 11/29/22 17:01 101 H 17 139/84 93 L 08/10/23 16:29 97.6 F 105 H 19 185/89 93 L Intake and Output 11/29/22 11/30/22 11/30/22 22:59 06:59 14:59 Intake Total 500 490 Output Total 580 Balance -80 490 Intake: IV 10 Invasive Line 1 10 Oral 500 480 Output: Urine 580 Other: Voiding Method Toilet Weight 113.398 kg 113.398 kg Results CBC & Chem 7: 11/30/22 03:41 11/30/22 03:41 Labs: Abnormal Lab Results - Last 24 Hours (Table) 11/29/22 11/29/22 11/29/22 Range/Units 16:32 16:46 16:46 Neutrophils # 7.8 H (1.3-7.7) k/uL APTT 21.0 L (22.0-30.0) sec Potassium (3.5-5.1) mmol/L Glucose (74-99) mg/dL POC Glucose (mg/dL) 338 H (70-110) mg/dL Plasma Lactic Acid Jhon (0.7-2.0) mmol/L Calcium (8.4-10.2) mg/dL ALT (4-49) U/L Alkaline Phosphatase (38-126) U/L 11/29/22 11/29/22 11/29/22 Range/Units 16:46 16:46 19:48 Neutrophils # (1.3-7.7) k/uL APTT (22.0-30.0) sec Potassium 3.3 L (3.5-5.1) mmol/L Glucose 313 H (74-99) mg/dL POC Glucose (mg/dL) (70-110) mg/dL Plasma Lactic Acid Jhon 4.7 H* 2.8 H* (0.7-2.0) mmol/L Calcium (8.4-10.2) mg/dL ALT 53 H (4-49) U/L Alkaline Phosphatase 130 H (38-126) U/L 11/29/22 11/30/22 Range/Units 21:26 03:41 Neutrophils # (1.3-7.7) k/uL APTT (22.0-30.0) sec Potassium (3.5-5.1) mmol/L Glucose 200 H (74-99) mg/dL POC Glucose (mg/dL) (70-110) mg/dL Plasma Lactic Acid Jhon 2.4 H* (0.7-2.0) mmol/L Calcium 8.3 L (8.4-10.2) mg/dL ALT 50 H (4-49) U/L Alkaline Phosphatase (38-126) U/L Thrombosis Risk Factor Assmnt - Choose All That Apply Any of the Below Risk Factors Present?: Yes Each Factor Represents 1 point: Medical pt on bed rest, Obesity (BMI >25) Other Risk Factors: Yes Each Risk Factor Represents 2 Points: Age 61-74 years Thrombosis Risk Factor Assessment Total Risk Factor Score: 4 Thrombosis Risk Factor Assessment Level: Moderate Risk
[2022-11-30 16:08] LABS: Chol/HDL Ratio 4.83 Ratio; LDL Cholesterol,Calculated 83.2 mg/dL (0.0-131.0)
[2022-11-30] MEDS: ASPIRIN 81 MG PO SCH (16:18)
[2022-11-30] MEDS: VALSARTAN 160 MG TAB PO SCH (20:06)
[2022-11-30] MEDS: amLODIPine 5 MG TAB PO SCH (20:06)
[2022-11-30] MEDS ORDERED: AMLODIPINE BESYLATE PO SCH (21:00)
[2022-11-30] MEDS ORDERED: [UNRECOGNIZED DRUG - OTHER] PO SCH (21:00)
[2022-11-30] MEDS ORDERED: VALSARTAN PO SCH (21:00)
--- NOTE | 2022-11-30 22:53 | EEG ---
DATE OF SERVICE: 11/30/2022 ELECTROENCEPHALOGRAM REPORT PREAMBLE: This is a 62-year-old male with syncope versus seizure. EEG FINDINGS: This is a 21-channel digital EEG recorded with video component, utilizing 10/20 international system with referential and bipolar montages. Background consists of well developed, well regulated, low to moderate voltage activity in 8 to 9 hertz alpha. Background is posterior dominant and reactive to eye opening and closing. There is a near constant electrode artifact with F7 seen during most of the study. Photic driving response was not seen. Drowsiness was seen with appearance of bilaterally symmetric theta frequency rhythm. Deeper stages of sleep were not seen. No focal or generalized epileptiform activity was seen. IMPRESSION: This is a normal awake and drowsy EEG. No focal, lateralized or epileptiform activity was seen. MMODL / IJN: [id number] / MTDD
[2022-12-01] MEDS: SODIUM CHLORIDE 0.9% 1,000 ML IV SCH ×3 (04:10→09:04)
[2022-12-01 08:31] VITALS: BP 158/88; PULSE 96; RESP 16; TEMP 98.5
[2022-12-01] MEDS: amLODIPine 5 MG TAB PO SCH (08:32)
[2022-12-01] MEDS: ASPIRIN 81 MG PO SCH (08:32)
[2022-12-01] MEDS: ATORVASTATIN 10 MG TAB PO SCH (08:32)
[2022-12-01] MEDS: VALSARTAN 160 MG TAB PO SCH (08:32)
[2022-12-01] MEDS ORDERED: VALSARTAN 160 MG TAB PO SCH (09:00)
[2022-12-01] MEDS ORDERED: [UNRECOGNIZED DRUG - OTHER] PO SCH (09:00)
[2022-12-01] MEDS ORDERED: VALSARTAN PO SCH (09:00)
[2022-12-01] MEDS ORDERED: amLODIPine 5 MG TAB PO SCH (09:00)
[2022-12-01] MEDS ORDERED: AMLODIPINE BESYLATE PO SCH (09:00)
[2022-12-01] MEDS ORDERED: DEXTROSE 50% SYRINGE 50 ML IVP PRN ×2 (10:55)
--- NOTE | 2022-12-01 12:00 | P.PN ---
Subjective Progress Note Date: 12/01/22 The patient is a 62-year-old male who presented to the hospital after experiencing a presyncopal episode. The patient had been at work and was on a long conference call. At the end of this call he developed dizziness with associated diaphoresis. He states the room began spinning, when he notified EMS. Systolic pressure was greater than 200 on arrival. The patient was interviewed and examined resting comfortably in bed. He denies any chest pain or chest pressure overnight. No heart racing or fluttering. No dizziness or lightheadedness. He denies any shortness of breath. We discussed diabetes management in detail. It was emphasized that he must adjust his diet in addition to medications as his hemoglobin A1c is 10.6. GENERAL: Well-appearing, well-nourished obese male and in no acute distress. NECK: Supple without JVD or thyromegaly. LUNGS: Breath sounds clear to auscultation bilaterally. Respiration equal and unlabored. No wheezes, rales or rhonchi. HEART: Regular rate and rhythm without murmurs, rubs or gallops. S1 and S2 heard. EXTREMITIES: Normal range of motion, no edema. No clubbing or cyanosis. Peripheral pulses intact and strong. VITALS: Systolic pressures in the 150s TELEMETRY: Sinus rhythm overnight IMPRESSION: Presyncope, likely secondary to hypertension Uncontrolled hypertension New-onset diabetes mellitus Morbid obesity, BMI 36 Hyperlipidemia PLAN: Continue current medication regimen Primary team to address diabetes Consider stress testing once blood pressure is better controlled The patient may be discharged from the cardiac standpoint. Outpatient follow-up with Dr. Montero in 2 weeks I am dictating on behalf of Dr Dwayne Montero's history/physical and assessment/plan. Objective - Vital Signs Vital signs: Vital Signs Temp 98.5 F 12/01/22 08:30 Pulse 96 12/01/22 08:30 Resp 16 12/01/22 08:30 BP 158/88 12/01/22 08:30 Pulse Ox 93 L 12/01/22 08:30 FiO2 Intake & Output 11/30/22 12/01/22 12/01/22 18:59 06:59 18:59 Intake Total 930 340 Balance 930 340 Intake: IV 10 20 Invasive Line 1 10 20 Intake, IV Titration 260 Amount Sodium Chloride 0.9% 1, 260 000 ml @ 130 mls/hr IV . [id number] [facility] Rx#:[id number] Oral 660 320 Other: Voiding Method Toilet Toilet Toilet # Voids 5 1 - Labs CBC & Chem 7: 11/30/22 03:41 11/30/22 03:41 Labs: Abnormal Lab Results - Last 24 Hours (Table) 11/30/22 11/30/22 Range/Units 03:41 03:41 Hemoglobin A1c 10.4 H (<=6.0) % Triglycerides 155.00 H (0.00-149.00) mg/dL HDL Cholesterol 29.80 L (40.00-60.00) mg/dL
[2022-12-01] MEDS ORDERED: INSULIN ASPART (NovoLOG) 100 UNIT/ML VIAL SQ SCH (12:30)
--- NOTE | 2022-12-01 13:50 | P.DS ---
Providers Date of admission: 11/29/22 21:36 Expected date of discharge: 12/01/22 Attending physician: Sanaz Munson Consults: 11/29/22 21:33 Consult Physician Routine Consulting Provider: Nadeem Go Consult Reason/Comments: newSz Do you want consulting provider notified?: Yes Consult Physician Routine Consulting Provider: Christen Bowen Consult Reason/Comments: syncop Do you want consulting provider notified?: Yes Primary care physician: [facility] Course: Discharge diagnoses; Near syncope Hypertensive urgency Hypokalemia Lactic acidosis Newly diagnosed diabetes mellitus HbA1c of 10.4 Hospital course; patient is 62-year-old gentleman with past medical history significant for hypertension, lipidemia who presented to the ER because of generalized weakness with near passing out events. Patient stated that he was working in his office on a conference call when he started getting diaphoretic and dizzy. Patient became lightheaded, denied any palpitation. Denied any chest pain . Denied any orthopnea or PND. There was no episode of passing out. Patient denied any jerky movements of arms or legs. No compared of bowel or urinary incontinence. Initial lab work done in the ER showed lymphocytic 10, hemoglobin 14.2, platelet count 231, sodium 137, potassium 3.3, BUN 14, creatinine 0.77, glucose 313, lactate 4.7 EKG done in the ER showed heart rate 103, P waves seen, no ST elevation or T- wave inversion in any leads CT brain done showed no acute cranial process CTA chest done negative for PE, CT abdominal done negative for any acute findings Chest x-ray negative for acute cardiac process 12/01. Patient seen and examined. Patient was seen by neurology and cardiology. Neurology cleared the patient as there was no evidence of any seizure from history or from EEG. Cardiology adjusted patient blood pressure medications ECG normal for any seizures, ultrasound of carotids didn't show any significant stenosis. 2-D echo done showed normal LVEF, no regional wall motion abnormalities Patient was found to be newly diabetic with a HbA1c of 10.4, started on metformin and Januvia PHYSICAL EXAMINATION: GENERAL: The patient is alert and oriented x3, not in any acute distress. Well developed, well nourished. HEENT: Pupils are round and equally reacting to light. EOMI. No scleral icterus. No conjunctival pallor. Normocephalic, atraumatic. No pharyngeal erythema. No thyromegaly. CARDIOVASCULAR: S1 and S2 present. No murmurs, rubs, or gallops. PULMONARY: Chest is clear to auscultation, no wheezing or crackles. ABDOMEN: Soft, nontender, nondistended, normoactive bowel sounds. No palpable organomegaly. MUSCULOSKELETAL: No joint swelling or deformity. EXTREMITIES: No cyanosis, clubbing, or pedal edema. NEUROLOGICAL: Gross neurological examination did not reveal any focal deficits. SKIN: No rashes. Dictation was produced using [employer] dictation software. please excuse any grammatical, word or spelling errors. Patient Condition at Discharge: Good Plan - Discharge Summary Discharge Rx Participant: No New Discharge Prescriptions: New Aspirin 81 mg PO DAILY #30 tab metFORMIN HCL 500 mg PO BID 30 Days #30 ml sitaGLIPtin PHOSPHATE [Januvia] 25 mg PO DAILY #30 tab Continue Atorvastatin [Lipitor] 10 mg PO DAILY Changed Amlodipine Besylate/Valsartan [Amlodipine-Valsartan 5-160 mg] 1 tab PO BID #30 tab Discharge Medication List Atorvastatin [Lipitor] 10 mg PO DAILY 11/29/22 [History] Amlodipine Besylate/Valsartan [Amlodipine-Valsartan 5-160 mg] 1 tab PO BID #30 tab 12/01/22 [Rx] Aspirin 81 mg PO DAILY #30 tab 12/01/22 [Rx] metFORMIN HCL 500 mg PO BID 30 Days #30 ml 12/01/22 [Rx] sitaGLIPtin PHOSPHATE [Januvia] 25 mg PO DAILY #30 tab 12/01/22 [Rx] Follow up Appointment(s)/Referral(s): Dwayne Montero MD [STAFF PHYSICIAN] - 2 Weeks (Please call to make a follow up appointment.) Rasheed Mckee MD [Primary Care Provider] - 1-2 days (Please call to make a follow up appointment.) Patient Instructions/Handouts: Seizure/Epilepsy Discharge Instructions & Follow-Up Discharge Disposition: HOME SELF-CARE
== END 2022-12-01 11:19 | disposition home or self-care (01) | DRG 305 ==
LOC: EC 16:27 → 3SCARD 21:36
PROVIDERS: ADMIT Hospitalist; ATTEND Hospitalist
DX: I16.0 Hypertensive urgency (principal); R56.9 Unspecified convulsions; E11.65 Type 2 diabetes mellitus with hyperglycemia; E66.01 Morbid (severe) obesity due to excess calories; I10 Essential (primary) hypertension; I08.1 Rheumatic disorders of both mitral and tricuspid valves; E87.6 Hypokalemia; H53.8 Other visual disturbances; E78.5 Hyperlipidemia, unspecified; R09.02 Hypoxemia; R00.0 Tachycardia, unspecified; Z68.36 Body mass index [BMI] 36.0-36.9, adult; Z79.899 Other long term (current) drug therapy; Z87.891 Personal history of nicotine dependence; Z79.82 Long term (current) use of aspirin; Z79.84 Long term (current) use of oral hypoglycemic drugs
CPT/HCPCS: 36415; 70450; 71275; 74177; 80053; 80061; 83036; 83605; 83735; 84100; 84443; 84484; 85025; 85610; 85730; 93005; 93306; 93880; 94760; 95816; 96360; 96361; 99291